=== PATIENT | female | born 1945 | race Caucasian/White ===

== ENCOUNTER 2018-10-26 01:55 | Emergency (ER) | payer OTHER, MEDICAID ==
[~2018-10-26] VITALS: Ht 157.5 cm; Wt 81.6 kg
[~2018-10-26 01:55] MED LIST: ALENDRONATE SOD70 M1 PO; GABAPENTIN300 MG PO; GLIPIZIDE ER5 MG PO; LABETALOL200 MG PO; LANTI SQ; METFORMIN850 MG PO; PROVENTAL PO; TRICOR145 MG PO; [UNRECOGNIZED DRUG - OTHER] PO
[2018-10-26 02:14] VITALS: Ht 157.5 cm; Wt 81.6 kg
[2018-10-26 08:30] VITALS: BP 130/60
== END 2018-10-26 08:58 | disposition home or self-care (01) ==
LOC: ED 01:55
DX: F43.20 Adjustment disorder, unspecified (principal); J45.909 Unspecified asthma, uncomplicated; I11.0 Hypertensive heart disease with heart failure; I50.9 Heart failure, unspecified; E11.9 Type 2 diabetes mellitus without complications; Z88.0 Allergy status to penicillin; Z88.1 Allergy status to other antibiotic agents